=== PATIENT | female | born 1950 | race Caucasian/White ===

== ENCOUNTER 2018-05-18 17:08 | Emergency (ER) | payer BC ==
[2018-05-18 17:25] VITALS: BP 135/86
[2018-05-18] MEDS ORDERED: Ketorolac INJ* 60 MG/2 ML VIAL IM ONE (17:49)
--- NOTE | 2018-05-18 17:55 | UC ---
Knee Pain HPI - HPI Summary HPI Summary: This patient is a 67 year old F presenting to [facility] with a chief complaint of right knee pain since 04/09/18. The patient reports that the pain began after she injured her right knee by bending it back. The patient reports that since the onset, the pain has worsened. The patient rates the pain 8/10 in severity. Symptoms aggravated by rest and standing still. Symptoms alleviated by walking. Patient reports swelling to the right knee and right ankle. Patient has hx of HTN. 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 Onset/Duration: Sudden Onset, Lasting Weeks, Still Present, Worse Since - last few days Severity Initially: Moderate Severity Currently: Moderate Location Of Injury: right knee Pain Intensity: 8 Pain Scale Used: 0-10 Numeric Aggravating Factor(s): Prolonged Standing Alleviating Factor(s): Other - walking Associated Signs And Symptoms: Positive: Swelling Able to Bear Weight: Yes - Allergies/Home Medications Allergies/Adverse Reactions: Allergies Allergy/AdvReac Type Severity Reaction Status Date / Time No Known Allergies Allergy Verified 05/18/18 17:28 Home Medications: Home Medications Pravastatin Sodium 20 mg PO DAILY 05/18/18 [History Confirmed 05/18/18] Valsartan/HCTZ 160/12.5(NF) [Diovan HCT 160/12.5 (NF)] 1 tab PO DAILY 05/18/18 [ History Confirmed 05/18/18] PMH/Surg Hx/FS Hx/Imm Hx Cardiovascular History: Hypertension - Surgical History Surgery Procedure, Year, and Place: T&A, Cholecystectomy - Family History Known Family History: Positive: Hypertension, Diabetes - Social History Alcohol Use: Weekly Substance Use Type: None Smoking Status (MU): Never Smoked Tobacco Review of Systems Constitutional: Negative - negative fever Respiratory: Negative - negative cough Gastrointestinal: Negative - negative vomiting Musculoskeletal: Arthralgia - right knee pain, Edema - right knee swelling, right ankle swelling All Other Systems Reviewed And Are Negative: Yes Physical Exam - Summary Physical Exam Summary: VITAL SIGNS: Reviewed. GENERAL: Patient is a well-developed and nourished FEMALE who is lying comfortable in the stretcher. Patient is not in any acute respiratory distress. HEAD AND FACE: Normocephalic EYES: PERRLA, EOMI x 2. EARS: Hearing grossly intact. MOUTH: Oropharynx within normal limits. NECK: Supple, trachea is midline, no adenopathy, no JVD, no carotid bruit. CHEST: Symmetric, no tenderness at palpation LUNGS: Clear to auscultation bilaterally. No wheezing or crackles. CVS: Regular rate and rhythm, S1 and S2 present, no murmurs or gallops appreciated. ABDOMEN: Soft, non-tender. Bowel sounds are normal. No abdominal abnormal pulsations. EXTREMITIES: Full ROM in all major joints, no cyanosis or clubbing. Slight effusion of the medial aspect of right knee, no calf tenderness, no Homans sign NEURO: Alert and oriented x 3. No acute neurological deficits. Speech is normal and follows commands. SKIN: Dry and warm Triage Information Reviewed: Yes Vital Signs: Initial Vital Signs Temp 98.9 F 05/18/18 17:19 Pulse 81 05/18/18 17:19 Resp 16 05/18/18 17:19 BP 135/86 05/18/18 17:19 Pulse Ox 89 05/18/18 17:19 Vital Signs Reviewed: Yes Diagnostics - Radiology Right knee XR Xray Interpretation: No Acute Changes - IMPRESSION: #. Osteoarthritis most prominent at the patellofemoral joint moderate in severity. Dr. Fajardo has reviewed this report. Radiology Interpretation Completed By: Radiologist Knee Pain Course/Dx - Course Course Of Treatment: X-ray of the knee impression: No acute fracture dislocation. Symptoms of the patient may be developing an acute patellofemoral syndrome. I have low suspicion for blood clots in the patient be having a lot of traveling. She was recommended to go to the ER to go home with the patient declined. she was given toradol for the pain and his symptoms improved. she was discharged home with follow-up with pcp and given a prescription for ibuprofen and norco for the pain. she was strongly recommended to go to the er if the symptoms do not improve or worsen. she understands and agrees. - Differential Dx/Diagnosis Provider Diagnoses: knee pain, patellofemoral pain syndrome Discharge - Sign-Out/Discharge Documenting (check all that apply): Patient Departure - Discharge Plan Condition: Stable Disposition: HOME Prescriptions: HYDROcodone/ACETAMIN 5-325 MG* [[place] 5-325 TAB*] 1 tab PO Q6H PRN #10 tab MDD 4 PRN Reason: Pain Ibuprofen TAB* [Motrin TAB* 800 MG] 800 mg PO ONCE PRN #30 tab PRN Reason: Pain Patient Education Materials: Patellofemoral Pain Syndrome (ED), Knee Pain (ED) , Arthralgia (ED) Referrals: [facility] [Outside] No Primary Care Phys,NOPCP [Primary Care Provider] - Additional Instructions: Take medications as instructed Increase your fluid intake Return to the UC if symptoms worsen - Billing Disposition and Condition Condition: STABLE Disposition: Home
--- NOTE | 2018-05-18 18:17 | RAD ---
Indication: RIGHT knee pain for one month with increasing in the last few days. Medial pain and swelling. Comparison: None. Technique: RIGHT knee: AP, tunnel, lateral, sunrise views. Report: Negative for fracture, joint effusion, or malalignment. Osteophytosis. Moderate patellofemoral joint space narrowing. Small button osteophyte at the lateral femoral condyle. Unremarkable soft tissue contours. IMPRESSION: #. Osteoarthritis most prominent at the patellofemoral joint moderate in severity.
== END 2018-05-18 18:30 | disposition home or self-care (01) ==
LOC: UCEAST 17:08
DX: M25.561 Pain in right knee (principal); M79.89 Other specified soft tissue disorders; M17.11 Unilateral primary osteoarthritis, right knee; I10 Essential (primary) hypertension; Z82.49 Family history of ischemic heart disease and other diseases of the circulatory system; Z83.3 Family history of diabetes mellitus
CPT/HCPCS: 96372; 99202; G0463; J1885

== ENCOUNTER 2018-05-19 08:13 | Emergency (ER) | payer BC ==
--- NOTE | 2018-05-19 08:41 | ED ---
Lower Extremity - HPI Summary HPI Summary: Pt. is a 67 y.o female who presents to the ER for a right knee injury. Pt. states she has been having ongoing right knee pain for over a month. [place]. [place] She was seen in yesterday and had an xray. She was rx ibuprofen and lortab. Pt. states last night she tripped going up stairs, twisting knee, and heard a "crack" to in her right knee. She states today she is unable to bear weight secondary to right knee pain. Denies numbness, tingling or weakness to RLE. She notes mild bilateral ankle edema she contributes to driving. Pt. states she has been doing multiple long car trips. Past medical hx of HTN. She otherwise denies calf pain, or swelling, CP, or SOB. Symptoms are mild in severity. Walking makes symptoms worse. Nothing makes symptoms better. 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 Pain Intensity: 10 - Allergies/Home Medications Allergies/Adverse Reactions: Allergies Allergy/AdvReac Type Severity Reaction Status Date / Time No Known Allergies Allergy Verified 05/19/18 08:22 Home Medications: Home Medications Biotin [Biotin Maximum Strength] 10,000 mcg PO DAILY 05/19/18 [History Confirmed 05/19/18] Cholecalciferol (Vitamin D3) [Natural Vitamin D-3] 5,000 unit PO DAILY 05/19/18 [History Confirmed 05/19/18] Vitamin B Complex CAP* [B Complex CAP*] 1 cap PO DAILY 05/19/18 [History Confirmed 05/19/18] PMH/Surg Hx/FS Hx/Imm Hx Previously Healthy: Yes - Surgical History Surgery Procedure, Year, and Place: T&A, Cholecystectomy Infectious Disease History: No Infectious Disease History: Denies: Traveled Outside the [place] in Last 30 Days - Family History Known Family History: Positive: Hypertension, Diabetes - Social History Occupation: Employed Full-time Lives: With Family Alcohol Use: Weekly Substance Use Type: Reports: None Smoking Status (MU): Never Smoked Tobacco Review of Systems Cardiovascular: Negative Negative: Chest Pain Respiratory: Negative Negative: Shortness Of Breath Positive: Other - Right knee pain Skin: Negative Negative: Weakness, Paresthesia, Numbness All Other Systems Reviewed And Are Negative: Yes Physical Exam Triage Information Reviewed: Yes Vital Signs On Initial Exam: Initial Vitals Temp Pulse Resp BP Pulse Ox 97.9 F 94 16 138/86 91 05/19/18 08:16 05/19/18 08:16 05/19/18 08:16 05/19/18 08:16 05/19/18 08:16 Vital Signs Reviewed: Yes Appearance: Positive: Well-Appearing - Pt. lying in bed in NAD. Talkative. Skin: Positive: Warm, Dry Head/Face: Positive: Normal Head/Face Inspection Eyes: Positive: Normal Neck: Positive: Supple Musculoskeletal: Positive: Other - Very mild edema to bilateral ankle. Good palpable right pedal pulse. No calf tenderness, edema, or palpable cords. Pain to the medial aspect of knee. Full ROM with pain. No increased laxity. Neurological: Positive: Normal, CN Intact II-III Psychiatric: Positive: Affect/Mood Appropriate Diagnostics - Vital Signs Vital Signs Temp Pulse Resp BP Pulse Ox 05/19/18 08:16 97.9 F 94 16 138/86 91 - Laboratory Lab Statement: Any lab studies that have been ordered have been reviewed, and results considered in the medical decision making process. Lower Extremity Course/Dx - Course Course Of Treatment: Pt. presenting to the ER for worsening right knee pain after a fall. Leg is neurovascularly intact. Given mild lower leg edema and recent numerous long car trips, U/S ordered to r/o DVT. Will repeat knee xray given new injury last night. U/S is negative for DVT or acute findings, reading per radiology. Knee xray shows arthritic changes without acute findings. Results were discussed with pt. She is concerned since she is unable to bear any weight onto right knee. I was able to schedule pt. an apt. with orthopedics for 05/23/18 at 1400. Immobilizer and crutches placed for potential ligamnetal injury. To ice and elevate. 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 to diamond picker pain rx she was rx yesterday in . Pt. understands and agrees with plan. - Diagnoses Differential Diagnosis/HQI/PQRI: Positive: Arthritis, Dislocation, DVT, Fracture (Closed), Sprain, Strain Provider Diagnoses: Knee injury Discharge - Sign-Out/Discharge Documenting (check all that apply): Patient Departure - Discharge Plan Condition: Good Disposition: HOME Patient Education Materials: Knee Pain (ED) Referrals: Cricket Ray MD [Medical Doctor] - No Primary Care Phys,NOPCP [Primary Care Provider] - Additional Instructions: Dr. 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
--- NOTE | 2018-05-19 09:04 | RAD ---
Indication: RIGHT knee pain post fall. Comparison: May 18, 2018 Technique: RIGHT knee: AP, tunnel, lateral, sunrise views. Report: Mild osteophytosis most prominent at the patellofemoral joint. Small button osteophyte at the lateral femoral condyle. Moderate joint space narrowing at the patellofemoral joint. Negative for effusion, fracture, or malalignment. Unremarkable soft tissue contours. IMPRESSION: #. No traumatic injury evident. #. Osteoarthritis most prominent at the patellofemoral joint moderate in severity.
--- NOTE | 2018-05-19 09:43 | RAD ---
Indication: Right leg edema. Duplex Doppler sonography of the deep venous system of the right lower extremity deep venous system was performed. Bilaterally the common femoral veins appear patent and compressible. Right proximal greater saphenous vein, proximal deep femoral vein, femoral vein, popliteal vein, posterior tibial veins and peroneal veins appear patent and compressible. IMPRESSION: NO EVIDENCE OF DEEP VENOUS THROMBOSIS IS IDENTIFIED.
[2018-05-19 10:49] VITALS: BP 132/76
== END 2018-05-19 10:47 | disposition home or self-care (01) ==
LOC: ED 08:13
DX: S89.91XA Unspecified injury of right lower leg, initial encounter (principal); W19.XXXA Unspecified fall, initial encounter; Y92.9 Unspecified place or not applicable; R60.0 Localized edema; M17.11 Unilateral primary osteoarthritis, right knee; I10 Essential (primary) hypertension
CPT/HCPCS: 99282